=== PATIENT | female | born 1990 | race Asian ===

== ENCOUNTER 2016-09-30 16:50 | Emergency (ER) | payer OTHER ==
[~2016-09-30] VITALS: Ht 160 cm; Wt 56.7 kg
[2016-09-30 17:35] LABS: PLATELET COUNT 343 K/uL (152-353)
[2016-09-30 17:50] LABS: SODIUM 132 mmol/L (136-145)
== END 2016-09-30 18:55 | disposition home or self-care (01) ==
LOC: ED 16:50
DX: R51 Headache (principal); Z33.1 Pregnant state, incidental
CPT/HCPCS: 36415; 80053; 85027; 87081; 87804; 87880; 99283

== ENCOUNTER 2018-10-13 12:17 | Outpatient (CLI) | payer OTHER | END 2018-10-13 22:20 | disposition home or self-care (01) | LOC: RAD 12:17 | DX: M54.6 Pain in thoracic spine (principal) ==

== ENCOUNTER 2018-11-08 10:24 | Emergency (ER) | payer OTHER ==
[~2018-11-08] VITALS: Ht 162.6 cm; Wt 62.6 kg
[2018-11-08 11:27] VITALS: BP 117/68; TEMP 97.2
== END 2018-11-08 11:27 | disposition home or self-care (01) ==
LOC: ED 10:24
DX: R50.9 Fever, unspecified (principal); J06.9 Acute upper respiratory infection, unspecified; J11.1 Influenza due to unidentified influenza virus with other respiratory manifestations
CPT/HCPCS: 87502; 99282